=== PATIENT | female | born 1975 | race Hispanic/Latino ===

== ENCOUNTER → 2021-03-17 | Outpatient (CLI) | payer MEDICAID ==
[~2021-03-17] MED LIST: GLYB2.5T6 PO; GLYB5TAB8 PO; PREN1TAB89 PO; RANI-379 PO
== END | disposition home or self-care (01) ==
LOC: DAH 10:00 → EDSTATUS 11:00
PROVIDERS: ATTEND Obstetrics & Gynecology
DX: Z01.818 Encounter for other preprocedural examination (principal); Z20.822 Contact with and (suspected) exposure to COVID-19; R10.2 Pelvic and perineal pain; N87.9 Dysplasia of cervix uteri, unspecified
CPT/HCPCS: 87635; C9803

== ENCOUNTER 2022-04-06 05:30 | Day surgery (SDC) | payer MEDICAID ==
[2022-04-05 15:52] VITALS: BP 141/79
[2022-04-05 15:54] LABS: BASOPHILS % (AUTO) 0.9 % (0.0-5.0); EOSINOPHILS % (AUTO) 3.6 % (0.0-8.0); HEMATOCRIT 41.2 % (36-48); LYMPHOCYTES % (AUTO) 34.2 % (21.0-51.0); MEAN CORPUSCULAR HGB CONC 33.3 g/dL (32.0-36.0); MEAN CORPUSCULAR VOLUME 90.4 fL (79-99); MONOCYTES % (AUTO) 7.7 % (3.0-13.0); NEUTROPHILS % (AUTO) 53.3 % (40.0-77.0); PLATELET COUNT (AUTO) 248 K/uL (130-400); RED BLOOD CELL COUNT(AUTO) 4.56 MIL/uL (4.00-5.50); RED CELL DISTRIBUTION WIDTH 12.4 % (11.0-15.5); WHITE BLOOD COUNT (AUTO) 6.3 K/uL (4.8-10.8)
[2022-04-05 16:00] LABS: APPEARANCE,URINE CLEAR (CLEAR); BILIRUBIN,URINE NEGATIVE (NEGATIVE); COLOR,URINE YELLOW (YELLOW); GLUCOSE, URINE (UA) NEGATIVE (NEGATIVE); KETONES,URINE NEGATIVE (NEGATIVE); LEUKOCYTE ESTERASE ,URINE NEGATIVE (NEGATIVE); NITRATE,URINE NEGATIVE (NEGATIVE); OCCULT BLOOD,URINE MODERATE (NEGATIVE); PROTEIN,URINE NEGATIVE (NEGATIVE); UROBILINOGEN,URINE 0.2 mg/dL (0.2-1.0)
[2022-04-05 16:08] LABS: INR 0.94 (0.85-1.15); PROTHROMBIN TIME 10.3 SEC (9.6-11.6)
[2022-04-05 16:10] LABS: PARTIAL THROMBOPLASTIN TIME 29.3 SEC (26.3-35.5)
[2022-04-05 16:12] LABS: BACTERIA,URINE Few /HPF (None Seen); SQUAMOUS EPITHELIAL CELL,UR Few /HPF (0-2)
[2022-04-05 16:14] LABS: MUCUS,URINE Rare LPF (None Seen)
[2022-04-06] VITALS (17 sets, daily range): BP systolic 103–147; BP diastolic 57–93
[~2022-04-06] VITALS: Ht 162.6 cm; Wt 103.9 kg
[~2022-04-06 05:30] MED LIST changes: -GLYB2.5T6 PO; -GLYB5TAB8 PO; +LEVOTHYROXINE PO; +LISINOPRIL PO; -PREN1TAB89 PO; -RANI-379 PO
[2022-04-06] MEDS ORDERED: LACTATED RINGERS 1000ML 1,000 ML IV ONE (06:13)
[2022-04-06] MEDS ORDERED: FAMOTIDINE 20MG VIAL IV ONE (06:27)
[2022-04-06] MEDS ORDERED: LIDOCAINE HCL MPF 1% 5ML VIAL ONE (06:30)
[2022-04-06] MEDS ORDERED: MIDAZOLAM HCL 1 MG/ML 2ML VIAL ONE (06:30)
[2022-04-06] MEDS ORDERED: PROPOFOL 10 MG/ML 20ML VIAL IV ONE (06:30)
[2022-04-06] MEDS ORDERED: FENTANYL CITRATE PF 50 MCG/1 ML 2ML VIAL ONE (06:31)
[2022-04-06] MEDS ORDERED: EPHEDRINE SULFATE 50 MG/ML AMPULE ONE (06:37)
[2022-04-06] MEDS ORDERED: STRONG IODINE SOLN 14ML BOTTLE ONE (06:39)
[2022-04-06] MEDS ORDERED: ACETIC ACID 0.25% 1,000 ML IRRIG.SOLN ONE (06:39)
[2022-04-06] MEDS ORDERED: DEXAMETHASONE SOD PHOSPHATE 10MG/ML 1ML VIAL ONE (06:41)
[2022-04-06] MEDS ORDERED: ONDANSETRON 4MG INJ ONE (06:41)
[2022-04-06] MEDS ORDERED: FEXO-263 PO (07:12)
[2022-04-06] MEDS ORDERED: AMLO-257 PO (07:12)
[2022-04-06] MEDS ORDERED: ROSU10TA28 PO (07:12)
[2022-04-06] MEDS ORDERED: OMEP20CA12 PO (07:12)
[2022-04-06] MEDS ORDERED: DOCU100T PO (07:12)
[2022-04-06] MEDS ORDERED: LACTATED RINGERS 1000ML 1,000 ML IV SCH (08:00)
[2022-04-06] MEDS ORDERED: MEPERIDINE-PF 25 MG/ML SYG ONE (08:02)
== END 2022-04-06 09:45 | disposition home or self-care (01) ==
LOC: DAH 05:30
PROVIDERS: ATTEND Obstetrics & Gynecology
DX: R87.613 High grade squamous intraepithelial lesion on cytologic smear of cervix (HGSIL) (principal); N88.8 Other specified noninflammatory disorders of cervix uteri; I10 Essential (primary) hypertension; E03.9 Hypothyroidism, unspecified; K21.9 Gastro-esophageal reflux disease without esophagitis; E66.01 Morbid (severe) obesity due to excess calories; Z68.39 Body mass index [BMI] 39.0-39.9, adult; Z79.899 Other long term (current) drug therapy; Z79.01 Long term (current) use of anticoagulants; Z83.3 Family history of diabetes mellitus; Z20.822 Contact with and (suspected) exposure to COVID-19
CPT/HCPCS: 84703; 85025; 85610; 85730; 86850; 86900; 86901; 81001; 36415; 87635; 57522; 88307; 88342; 88341; C9803; A6260; A4663; J7030; A4351; A4606; J7120; J3010; J1100; J3490 ×3; J2250; J2405; J2175; A4215; A4223; A4222; A4221; S0028; J2704